=== PATIENT | female | born 1945 | race Caucasian/White ===

== ENCOUNTER 2016-12-27 14:07 | Emergency (ER) | payer OTHER ==
[~2016-12-27] VITALS: Ht 167.6 cm; Wt 102.5 kg
--- NOTE | 2016-12-27 14:26 | ED NOSE COMPLAINT ---
History of Present Illness General Chief Complaint: Epistaxis/Nasal Foreign Body Stated Complaint: EPISTAXIS Source: patient, family, old records, EMS Exam Limitations: no limitations Vital Signs & Intake/Output Vital Signs & Intake/Output Vital Signs Date Time Temp Pulse Resp B/P Pulse O2 O2 Flow FiO2 Ox Delivery Rate 12/27 1504 88 148/67 12/27 1408 75 18 147/86 96 Room Air Allergies Coded Allergies: No Known Allergies (12/27/16) Reconcile Medications Acetaminophen (Tylenol Extra Strength) 500 MG TABLET 2 TAB PO PRN PAIN ( Reported) Alprazolam (Xanax) 0.25 MG TABLET 1 TAB PO PRN ANXIETY (Reported) Amiodarone HCl 200 MG TABLET 1 TAB PO QPM HEART (Reported) Furosemide (Lasix) 20 MG TABLET 1 TAB PO QAM DIURETIC (Reported) Metoprolol Succinate 100 MG TAB.ER.24H 1 TAB PO QAM HEART/BP (Reported) Olmesartan Medoxomil (Benicar) 20 MG TABLET 1 TAB PO QAM BP (Reported) Oxybutynin Chloride (Oxybutynin Chloride ER) 10 MG TAB.ER.24 1 TAB PO QAM BLADDER (Reported) Rivaroxaban (Xarelto) 20 MG TABLET 1 TAB PO QPM BLOOD THINNER (Reported) with food Triage Note: RECEIVED 71 YO FEMALE SHALA FROM HOME WITH C/O LEFT NARE NOSE BLEED X 30 MINUTES. PT IS CURRENTLY TAKING XERELTO. PT HAD A NOSE BLEED YESTERDAY X 15 MINUTES AND RESOLVED SPONTANEOUSLY. Triage Nurses Notes Reviewed? yes Onset: Abrupt Duration: minute(s): (30), constant Timing: single episode today Injury Environment: home Severity: mild, moderate Severity Numbers: 4 No Modifying Factors: none Associated Symptoms: denies HPI: 71-year-old female history of A. fib on xarelto presents to the ER for evaluation brought in by a lens after she's had a 30 minute episode of left- sided epistaxis that came on suddenly. She states she had a nosebleed yesterday that lasted approximately 15 minutes before resolving on their own. Patient denies history of frequent epistaxis she's been on any blood thinner for the past 2 years without complications. No dizziness lightheadedness palpitations. Denies recent fever chills rhinorrhea sore throat. There are no modifying factors or associated symptoms otherwise. Past History Travel History Traveled to [place] past 21 day No Medical History Any Pertinent Medical History? see below for history Neurological: TIA EENT: NONE Cardiovascular: AFIB, hypertension Respiratory: NONE Gastrointestinal: NONE Hepatic: NONE Renal: NONE Musculoskeletal: NONE Psychiatric: NONE Endocrine: NONE Blood Disorders: NONE Cancer(s): MENINGIOMA Surgical History Surgical History: non-contributory Psychosocial History What is your primary language [place] Tobacco Use: Quit >30 days ago Family History Hx Contributory? No Review of Systems Review of Systems Constitutional: Reports: see HPI. All Other Systems: Reviewed and Negative Comments Review of systems: See HPI, All other systems negative. Constitutional, no chills no fever, no malaise HEENT: No visual changes no sore throat no congestion Cardiovascular: No chest pain , no palpitation Skin, no rashes, no change in skin Respiratory: No dyspnea no cough no sputum GI: No nausea no vomiting, no diarrhea : No dysuria Muscle skeletal: No joint pain, no back pain, no neck pain, Neurologic: No numbness no headache Psych: No stress Heme/endocrine: No bruising bleeding Immunology: No lymphadenopathy, Physical Exam Physical Exam General Appearance: well developed/nourished, alert, awake Nose: dried blood Comments: Well-developed well-nourished patient in no apparent distress. Head/Face: Atraumatic, no maxillary/frontal sinus tenderness, no facial swelling Eyes: PERRL, EOMI, no conjunctival injection. No nystagmus Ear:External auditory canal and Tympanic membranes clear, no erythema, no FB. Nose: atraumatic.dry blood noted to left nostril is no active bleeding No bleeding, no septal hematoma Throat: Moist mucous membranes.Pharynx normal. No pharyngeal erythema/exudate seen. No stridor/drooling or assymetry. No swelling or edema. Neck: Supple, no lymphadenopathy, FROM Back: FROM, Nontender Cardiovascular: Regular rate and rhythms no murmurs rubs or gallops, Respiratory: No respiratory distress. Patient speaking in full complete sentences. Breath sounds clear to auscultation bilaterally: NO W/R/R Extremities: full range of motion Neuro: Alert and oriented x3 Skin: Warm & dry;No appreciable rash on exposed skin Psych: Mood affect normal, normal memory normal judgment. Progress Differential Diagnoses I considered the following diagnoses in my evaluation of the patient: Epistaxis trouble cytopenia Plan of Care: Orders Procedure Date/time Status PROTHROMBIN TIME 12/27 144 Complete CBC WITHOUT DIFFERENTIAL 12/27 1444 Complete Laboratory Tests 12/27/16 1459: PT 15.3 H, INR 1.46 H, CBC w Diff NO MAN DIFF REQ, RBC 4.49, MCV 89.5, MCH 31.1 H, RDW 12.4, MPV 9.6, Gran % 82.4 H, Lymphocytes % 12.1 L, Monocytes % 4.7, Eosinophils % 0.6, Basophils % 0.2, Absolute Granulocytes 8.2 H, Absolute Lymphocytes 1.2, Absolute Monocytes 0.5, Absolute Eosinophils 0.1, Absolute Basophils 0, PUBS MCHC 34.7 Labs ordered old records reviewed, Afrin was instilled in the left nostril by myself we will continue to monitor there is no active bleeding at this time case discussed with Dr. Carter 12/27/2016 3:17:37 PM discussed the patient at late all of her lab results as well as her family, the patient has had no further episodes of bleeding, I discussed with her the importance of close follow-up with her ear nose and throat physician this week, advised to return anytime sooner answered all their questions they feel comfortable with this plan (ISIDRO BENNETT,ANIVAL) Initial ED EKG: none Departure Departure Time of Disposition: 1533 Disposition: HOME OR SELF CARE Condition: Stable Clinical Impression Primary Impression: Epistaxis Additional Instructions: Follow-up with your ear nose and throat physician Dr. Seay. Afrin nasal spray as discussed return anytime sooner with any concerns Departure Forms: Customer Survey General Discharge Information
[2016-12-27 15:04] VITALS: BP 148/67
[2016-12-27 15:05] LABS: ABSOLUTE BASOPHIL COUNT 0 /CUMM (0.0-0.2); ABSOLUTE EOSINOPHIL COUNT 0.1 /CUMM (0.0-0.7); ABSOLUTE GRANULOCYTE CT 8.2 /CUMM (1.4-6.5); ABSOLUTE LYMPH COUNT 1.2 /CUMM (1.2-3.4); ABSOLUTE MONOCYTE COUNT 0.5 /CUMM (0.10-0.60); BASOPHIL % 0.2 % (0.0-2.0); EOSINOPHIL % 0.6 % (0-5); GRANULOCYTE % 82.4 % (42.2-75.2); HEMATOCRIT 40.2 % (37-47); MEAN CORPUSCULAR HGB 31.1 PG (27.0-31.0); MEAN CORPUSCULAR HGB CONC 34.7 G/DL (33.0-37.0); MEAN CORPUSCULAR VOLUME 89.5 FL (81.0-99.0); MEAN PLATELET VOLUME 9.6 FL (7.4-10.4); PLATELET COUNT 284 /CUMM (130-400); RBC DISTRIBUTION WIDTH 12.4 % (11.5-14.5); RED BLOOD CELL CT 4.49 /CUMM (4.20-5.40); WHITE BLOOD CELL COUNT 9.9 /CUMM (4.8-10.8)
[2016-12-27] MEDS ORDERED: METOPROLOL SUC100 M2 PO (15:08)
[2016-12-27] MEDS ORDERED: BENICAR20 M1 PO (15:08)
[2016-12-27] MEDS ORDERED: OXYBUTYNIN CHLO10 M1 PO (15:09)
[2016-12-27] MEDS ORDERED: XARELTO20 M2 PO (15:09)
[2016-12-27] MEDS ORDERED: LASIX20 M1 PO (15:09)
[2016-12-27] MEDS ORDERED: AMIODARONE HCL200 M1 PO (15:10)
[2016-12-27] MEDS ORDERED: XANAX0.25 M1 PO (15:10)
[2016-12-27] MEDS ORDERED: TYLENOL EXTRA500 M2 PO (15:11)
[2016-12-27 15:12] LABS: PT 15.3 SEC (9.4-12.5)
== END 2016-12-27 15:44 ==
LOC: ERH 14:07
PROVIDERS: Physician Assistant Medical
DX: R04.0 Epistaxis (principal)